=== PATIENT | male | born 2000 | race Caucasian/White ===

== ENCOUNTER 2019-12-28 20:26 | Emergency (ER) | payer SELFPAY ==
[2019-12-28 20:27] VITALS: BP 121/65
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
--- NOTE | 2019-12-28 22:41 | NUR ---
WOUND CARE COMPLETED. AWAITING DC ORDERS.
== END 2019-12-28 22:50 | disposition home or self-care (01) ==
LOC: ED 20:55
DX: S61.012A Laceration without foreign body of left thumb without damage to nail, initial encounter (principal); W26.0XXA Contact with knife, initial encounter; Y93.89 Activity, other specified; Y92.009 Unspecified place in unspecified non-institutional (private) residence as the place of occurrence of the external cause; Y99.8 Other external cause status
CPT/HCPCS: 12031; 12041; 99284